=== PATIENT | female | born 1935 | race Caucasian/White ===

== ENCOUNTER 2019-04-06 05:58 | Emergency (ER) | payer OTHER, MEDICARE ==
[~2019-04-06] VITALS: Ht 160 cm; Wt 59.0 kg
[2019-04-06 06:30] VITALS: BP_SYST 150
[2019-04-06] MEDS ORDERED: MORPHINE 2 MG/ML INJ. SYRINGE IVP ONE (07:15)
[2019-04-06 07:29] LABS: BASOPHILS % (AUTO) 0.6 % (0.0-2.0); EOSINOPHILS % (AUTO) 0.4 % (0.0-4.0); HEMATOCRIT 39.3 % (36-48); HEMOGLOBIN 13.3 g/dL (12.0-16.0); LYMPHOCYTES # (AUTO) 1.4 K/uL (1.0-5.5); LYMPHOCYTES % (AUTO) 19.7 % (20.5-51.5); MEAN CORPUSCULAR HEMOGLOBIN 32 pg (27-31); MEAN CORPUSCULAR HGB CONC 34 % (32-36); MEAN CORPUSCULAR VOLUME 95 fL (79.0-98.0); MONOCYTES # (AUTO) 0.5 K/uL (0.0-1.0); MONOCYTES % (AUTO) 6.3 % (1.7-9.3); NEUTROPHILS # (AUTO) 5.3 K/uL (1.8-7.7); PLATELET COUNT (AUTO) 255 K/uL (130-430); RED BLOOD CELL COUNT(AUTO) 4.12 MIL/uL (4.2-6.2); RED CELL DISTRIBUTION WIDTH 13.9 % (9.0-15.0); WHITE BLOOD COUNT (AUTO) 7.3 K/uL (4.8-10.8)
[2019-04-06 07:47] LABS: ANION GAP 6 (5-15); CALCIUM 9.2 mg/dL (8.4-11.0); CHLORIDE 104 mmol/L (98-107); CREATININE 0.79 mg/dL (0.55-1.30); GLUCOSE 107 mg/dL (70-99); INR 0.9 (0.8-1.2); POTASSIUM 3.9 mmol/L (3.5-5.1); PROTHROMBIN TIME 9.4 SECS (9.5-12.5); SODIUM SERUM 141 mmol/L (136-145); UREA NITROGEN, BLOOD 16 mg/dL (8-21)
[2019-04-06 07:53] LABS: ALANINE AMINOTRANSFERASE 15 U/L (12-78); ALBUMIN 3.6 g/dL (3.4-4.8); ASPARTATE AMINOTRANSFERASE 14 U/L (10-37); LIPASE 44 U/L (73-393); TOTAL BILIRUBIN 0.5 mg/dL (0.0-1.0)
[2019-04-06 08:38] LABS: BILIRUBIN,URINE NEGATIVE (NEGATIVE); BLOOD, URINE NEGATIVE (NEGATIVE); CLARITY/URINE CLEAR (CLEAR); COLOR,URINE YELLOW (YELLOW); GLUCOSE,URINE NEGATIVE (NEGATIVE); KETONES,URINE NEGATIVE (NEGATIVE); LEUKOCYTE ESTERASE ,URINE NEGATIVE (NEGATIVE); NITRITE, URINE NEGATIVE (NEGATIVE); PROTEIN URINE NEGATIVE (NEGATIVE); UROBILINOGEN,URINE 0.2 (0.2-1.0)
[2019-04-06] MEDS ORDERED: MAGNESIUM SULFATE 50 ML IV ONE (08:45)
[2019-04-06 10:50] VITALS: BP_SYST 138
== END 2019-04-06 10:50 | disposition home or self-care (01) ==
LOC: SED 05:58
DX: K59.00 Constipation, unspecified (principal); Z88.6 Allergy status to analgesic agent; Z88.8 Allergy status to other drugs, medicaments and biological substances
CPT/HCPCS: 36415; 74176; 76700; 80053; 81003; 83605; 83690; 84484; 85025; 85610; 85730; 93005; 96365; 96375; 99284; J2270; J3475

== ENCOUNTER 2019-04-09 07:08 | Inpatient (IN) | payer OTHER, MEDICARE ==
[~2019-04-09] VITALS: Ht 160 cm; Wt 56.7 kg
[2019-04-09 07:19] VITALS: BP_SYST 154
--- NOTE | 2019-04-09 07:19 | NUR ---
Patient to ER bed 6 to gown for evaluation. Side rails up. Report given to Raimundo RIOS.
--- NOTE | 2019-04-09 07:25 | NUR ---
Patient comes to ER with complaint of ABD pain and diarrhea. Patient is awake, AOx4, ambulatory, verbal and able to give history. Patient states that she has had constipation for about a week, came to ER on Sunday04/06/19 and now has diarrhea x 1 day. Complaint of general malaise with some dizziness.
--- NOTE | 2019-04-09 07:30 | NUR ---
DR Garcia at bedside for ER evaluation
--- NOTE | 2019-04-09 07:35 | NUR ---
# 20 gauge angiocath placed to LT AC. Use of asceptic technique. Opsite placed over site. Blood return noted. Blood for lab drawn from site. Flushed with 10 cc of normal saline. No evidence of infiltration noted. Patient tolerated well.
[2019-04-09 08:00] LABS: BASOPHILS % (AUTO) 0.3 % (0.0-2.0); EOSINOPHILS # (AUTO) 0.1 K/uL (0.0-0.4); EOSINOPHILS % (AUTO) 0.8 % (0.0-4.0); HEMATOCRIT 39.1 % (36-48); HEMOGLOBIN 12.9 g/dL (12.0-16.0); LYMPHOCYTES # (AUTO) 1.7 K/uL (1.0-5.5); LYMPHOCYTES % (AUTO) 23.7 % (20.5-51.5); MEAN CORPUSCULAR HEMOGLOBIN 32 pg (27-31); MEAN CORPUSCULAR HGB CONC 33 % (32-36); MEAN CORPUSCULAR VOLUME 97 fL (79.0-98.0); MONOCYTES # (AUTO) 0.4 K/uL (0.0-1.0); MONOCYTES % (AUTO) 6.2 % (1.7-9.3); NEUTROPHILS # (AUTO) 4.8 K/uL (1.8-7.7); PLATELET COUNT (AUTO) 303 K/uL (130-430); RED BLOOD CELL COUNT(AUTO) 4.04 MIL/uL (4.2-6.2); RED CELL DISTRIBUTION WIDTH 13.7 % (9.0-15.0)
--- NOTE | 2019-04-09 08:05 | NUR ---
turfgrass technician at bedside for transport to radiology for imaging
[2019-04-09] MEDS ORDERED: MORPHINE 2 MG/ML INJ. SYRINGE IVP ONE (08:15)
[2019-04-09 08:18] LABS: ANION GAP 5 (5-15); CALCIUM 9.1 mg/dL (8.4-11.0); CHLORIDE 103 mmol/L (98-107); CREATININE 0.74 mg/dL (0.55-1.30); GLUCOSE 115 mg/dL (70-99); POTASSIUM 3.9 mmol/L (3.5-5.1); SODIUM SERUM 138 mmol/L (136-145); UREA NITROGEN, BLOOD 9 mg/dL (8-21)
[2019-04-09 08:22] LABS: ALANINE AMINOTRANSFERASE 18 U/L (12-78); ALBUMIN 3.6 g/dL (3.4-4.8); ASPARTATE AMINOTRANSFERASE 17 U/L (10-37); LIPASE 43 U/L (73-393); PROTHROMBIN TIME 9.7 SECS (9.5-12.5); TOTAL BILIRUBIN 0.4 mg/dL (0.0-1.0)
[2019-04-09 08:45] LABS: BILIRUBIN,URINE NEGATIVE (NEGATIVE); CLARITY/URINE CLEAR (CLEAR); COLOR,URINE YELLOW (YELLOW); GLUCOSE,URINE NEGATIVE (NEGATIVE); KETONES,URINE NEGATIVE (NEGATIVE); LEUKOCYTE ESTERASE ,URINE NEGATIVE (NEGATIVE); NITRITE, URINE NEGATIVE (NEGATIVE); PH,URINE 7.5 (5.0-8.0); PROTEIN URINE NEGATIVE (NEGATIVE); UROBILINOGEN,URINE 0.2 (0.2-1.0)
[2019-04-09 08:46] LABS: BLOOD, URINE TRACE (NEGATIVE)
[2019-04-09] MEDS ORDERED: AMLO5TAB4 PO (08:52)
[2019-04-09] MEDS ORDERED: LATA5DRO OP (08:52)
--- NOTE | 2019-04-09 08:52 | NUR ---
Medication reconciliation completed with information provided by pt. Any prior medication reconciliation on file was reviewed and corrected.
[2019-04-09 08:59] LABS: BACTERIA,URINE FEW /HPF (None Seen); WBC,URINE 0-3 /HPF (0-3)
--- NOTE | 2019-04-09 09:40 | NUR ---
Report from Michael RIOS
--- NOTE | 2019-04-09 09:45 | NUR ---
Patient will be admitted to care of Dr. Adair. Admitted to medsurge unit. Will go to room 133A. Belongings list completed. Summary report printed. Report will be given at bedside Summer RN.
--- NOTE | 2019-04-09 09:58 | NUR ---
Admission patient brought to room 133A via gurney, patient ambulated to bed from [facility], steady gait noted, respirations even and unlabored on room air, no acute distress noted, patient reports pain is controlled at this time, patients friend Mike at bedside, educated patient on use of call light and asked to call for assistance, patient verbalized understanding, call light in reach, educated patient on use of bed alarm for patient safety, patient refusing bed alarm, bed in low and locked position.
[2019-04-09 10:01] VITALS: BP_SYST 141
[2019-04-09] MEDS: KCL 20 mEq in D5/0.45NS 1000mL 1,000 ML IV SCH ×2 (11:22→23:20)
--- NOTE | 2019-04-09 12:03 | NUR ---
RN Rounds patient resting in bed, respirations even and unlabored on room air, no acute distress noted, IV fluid infusing well, no redness or swelling noted at IV site.
[2019-04-09] MEDS: metroNIDAZOLE 500 mg/NS 100 ML IV SCH ×2 (13:42→21:35)
--- NOTE | 2019-04-09 13:48 | NUR ---
Physician Rounds Dr. Campbell at bedside examining patient.
[2019-04-09 13:50] VITALS: BP_SYST 130
--- NOTE | 2019-04-09 13:55 | NUR ---
SS Notes: PUBLISHING DIRECTOR met with pt at bedside for assessment. Demographic information verified. Pt states prior to being admitted, she was experiencing abdominal pain for 5 days and intensified since yesterday prompting medical care. Pt states she thought it was due to constipation and took some over the counter regimen. Pt lives alone and is independent with her ADL's (cooking, driving, ambulating). Pt states she lives in a one gato home with no steps to get to the front door. Pt does not have any DME's. Pt states her daughter Dorota is her support system but has two other children. Pt does not have any advanced directive or POLST. Pt denies history of mental health but states she feels sad and denies suicidal ideation/homicidal ideation. Pt states she has been independent and being confined in the hospital with limited ambulation due to pain and not being able to do her normal routine makes her sad, pt was tearful during the conversation. PUBLISHING DIRECTOR encouraged pt to verbalize feelings of sadness, and encouraged pt to call friends, family or SS if she needs to talk to someone for support. Pt states she fears being alone and isolated, stating "something might happen while being alone". Pt states she is interested in a program that [facility] offers which calls seniors to talk and check up on them. PUBLISHING DIRECTOR provided pt with [facility]'s phone numbers and encouraged pt to make calls and asks about programs offered. Pt was also provided with Advanced Directive and POLST and educated on both forms. PUBLISHING DIRECTOR provided pt with senior service, and half-way booklet resource. PUBLISHING DIRECTOR encouraged pt to call if questions arise. SS will remain available when needed.
[2019-04-09] MEDS ORDERED: ONDANSETRON HCL 4 MG/2 ML VIAL IVP PRN (14:00)
[2019-04-09] MEDS ORDERED: SIMETHICONE 80 MG TAB.CHEW PO ONE (14:15)
--- NOTE | 2019-04-09 15:50 | NUR ---
RN Rounds patient resting in bed, respirations even and unlabored on room air, no acute distress noted, patient reports pain is controlled.
--- NOTE | 2019-04-09 18:10 | NUR ---
Ambulated to bathroom assisted patient to ambulate to bathroom, steady gait noted, non slip footwear in place, minimum assistance required, voided x1, patient ambulated back to bed.
[2019-04-09 18:42] VITALS: BP_SYST 134
--- NOTE | 2019-04-09 19:26 | NUR ---
Closing Note bedside SBAR report given to receiving RN, patient resting in bed, no acute distress noted, respirations even and unlabored on room air, patient reports pain is controlled, educated patient on use of call light and asked to call for assistance, patient verbalized understanding, call light in reach, educated patient on use of bed alarm for patient safety, patient refusing bed alarm, bed in low and locked position, care endorsed to Gisselle RN.
[2019-04-09 20:45] VITALS: BP_SYST 121
[2019-04-09] MEDS: Latanoprostene Bunod (Vyzulta) OP SCH (21:00)
[2019-04-09] MEDS: ENOXAPARIN SODIUM 40 MG/0.4 ML SYRINGE SUBCUT SCH (21:31)
[2019-04-09] MEDS: SIMETHICONE 80 MG TAB.CHEW PO SCH (21:35)
--- NOTE | 2019-04-09 22:00 | NUR ---
PT RECEIVED AWAKE ALERT AND ORIENTED , PT HAVE NO CHEST PAIN . NO SOB . PT ON IVD51/2 NS WITH 20MEQ KCL .PT WILL BE MONITORED THROUGH THE NIGHT
--- NOTE | 2019-04-10 | NUR ---
PT SLEEPING . IV INFUSING WELL.
[2019-04-10 01:54] VITALS: BP_SYST 147
[2019-04-10] MEDS: KCL 20 mEq in D5/0.45NS 1000mL 1,000 ML IV SCH ×2 (03:16→03:35)
--- NOTE | 2019-04-10 04:00 | NUR ---
PT AWAKE .NO C/O PAIN .
[2019-04-10] MEDS: metroNIDAZOLE 500 mg/NS 100 ML IV SCH ×3 (05:58→21:46)
--- NOTE | 2019-04-10 06:00 | NUR ---
PT STABLE . NO COMPLAIN .
[2019-04-10 06:12] LABS: ANION GAP 3 (5-15); CALCIUM 8.5 mg/dL (8.4-11.0); CHLORIDE 104 mmol/L (98-107); CREATININE 0.78 mg/dL (0.55-1.30); GLUCOSE 117 mg/dL (70-99); POTASSIUM 3.7 mmol/L (3.5-5.1); SODIUM SERUM 137 mmol/L (136-145); UREA NITROGEN, BLOOD 9 mg/dL (8-21)
[2019-04-10 06:41] LABS: BASOPHILS % (AUTO) 0.5 % (0.0-2.0); EOSINOPHILS # (AUTO) 0.1 K/uL (0.0-0.4); EOSINOPHILS % (AUTO) 1.6 % (0.0-4.0); HEMATOCRIT 34.1 % (36-48); HEMOGLOBIN 11.5 g/dL (12.0-16.0); LYMPHOCYTES # (AUTO) 2.2 K/uL (1.0-5.5); LYMPHOCYTES % (AUTO) 40.2 % (20.5-51.5); MEAN CORPUSCULAR HEMOGLOBIN 32 pg (27-31); MEAN CORPUSCULAR HGB CONC 34 % (32-36); MEAN CORPUSCULAR VOLUME 96 fL (79.0-98.0); MONOCYTES # (AUTO) 0.4 K/uL (0.0-1.0); MONOCYTES % (AUTO) 7.7 % (1.7-9.3); NEUTROPHILS # (AUTO) 2.8 K/uL (1.8-7.7); PLATELET COUNT (AUTO) 253 K/uL (130-430); RED BLOOD CELL COUNT(AUTO) 3.54 MIL/uL (4.2-6.2); RED CELL DISTRIBUTION WIDTH 13.9 % (9.0-15.0); WHITE BLOOD COUNT (AUTO) 5.5 K/uL (4.8-10.8)
--- NOTE | 2019-04-10 08:00 | NUR ---
ASSUMPTION OF CARE: RECEIVED PT A/A/OX4, DX: DECREASED ELIMINATION, R/T BLADDER INFECTION/ ABD PAIN, VSS, AFEBRILE, NO S/S OF DISTRESS, IV SITE INTACT, PATENT, NO REDNESS OR SWELLING, ORIENTED TO UNIT, CALL LIGHT PLACED WITHIN REACH, WILL CONT' TO MONITOR AND ASSESS.
--- NOTE | 2019-04-10 09:00 | NUR ---
PUBLICITY DIRECTOR: MORNING MEDS GIVEN, PER ORDERED BY Calvin, TOLERATED WELL, WILL CONT' TO MONITOR AND ASSESS.
[2019-04-10] MEDS: SIMETHICONE 80 MG TAB.CHEW PO SCH ×2 (09:26→20:34)
[2019-04-10] MEDS: amLODIPine BESYLATE 5 MG TABLET PO SCH (09:27)
[2019-04-10 09:29] VITALS: BP_SYST 141
--- NOTE | 2019-04-10 12:00 | NUR ---
IV INSERTION: PT C/O IV SITE APPEARED SWOLLEN AFTER SLEEPING ON TOP OF THE SITE, NEW IV INSERTED TO LEFT FA, 20G X 1 ATTEMPT, TOLERATED WELL, WILL CONT' TO MONITOR AND ASSESS.
[2019-04-10 12:26] VITALS: BP_SYST 124
--- NOTE | 2019-04-10 15:30 | NUR ---
VISIT: AT BEDSIDE FOR ASSESSMENT OF PT, DISCUSSED DIAGNOSIS AND POC, PT VERBALIZES UNDERSTANDING, NEW ORDERS GIVEN, WILL CONT' TO MONITOR AND ASSESS.
[2019-04-10 17:09] VITALS: BP_SYST 135
--- NOTE | 2019-04-10 17:37 | NUR ---
P.T. NOTES P.T. BARB COMPLETED; PATIENT MAY AMBULATE AD KARLIE W/ NURSE. Addendum: 04/10/19 at 1741 by Junie Heard PT Amended: Links added.
--- NOTE | 2019-04-10 19:30 | NUR ---
Opening notes Received report. Patient resting comfortably in bed. No signs of distress noted. Breathing even and unlabored. Denies any pain. IV patent and intact, infusing fluids. Updated patient on plan of care. Patient verbalized understanding. No needs at this time. Call light with the patient. Safety precautions in place.
[2019-04-10 20:00] VITALS: BP_SYST 126
[2019-04-10] MEDS: Latanoprostene Bunod (Vyzulta) OP SCH (20:34)
[2019-04-10] MEDS: ENOXAPARIN SODIUM 40 MG/0.4 ML SYRINGE SUBCUT SCH (20:35)
--- NOTE | 2019-04-10 20:45 | NUR ---
Medications given. Educated the action and side effects of medications. Patient verbalized understanding and tolerated well. No signs of allergic reaction noted. Assisted patient to bathroom with a walker. Steady gait noted. Patient stated she is feeling much better. Patient assisted back into bed. No other needs. Call light with the patient. Safety precautions in place.
--- NOTE | 2019-04-10 22:00 | NUR ---
Patient sitting in bedside chair Patient states she is uncomfortable and wants to sit in chair. Patient assisted to chair. Informed patient to call when she is ready to get back into bed. Patient verbalized understanding and tolerated well. Call light given to patient. Patient watching TV. Addendum: 04/10/19 at 2251 by Maribeth Goldstein RN Patient called to get back into bed. Patient assisted into bed. No signs of distress noted. Breathing even and unlabored. Call light with the patient. Safety precautions in place.
--- NOTE | 2019-04-11 00:30 | NUR ---
SLEEPING NO SIGNS OF DISTRESS NOTED. BREATHING EVEN AND UNLABORED. IVF INFUSING WELL. CALL LIGHT WITH THE PATIENT. SAFETY PRECAUTIONS IN PLACE.
[2019-04-11 01:31] VITALS: BP_SYST 131
[2019-04-11] MEDS: KCL 20 mEq in D5/0.45NS 1000mL 1,000 ML IV SCH ×2 (02:56→17:38)
--- NOTE | 2019-04-11 03:00 | NUR ---
SLEEPING PATIENT SLEEPING. NO SIGNS OF DISTRESS NOTED. BREATHING EVEN AND UNLABORED. NEW BAG OF IVF HUNG AT THIS TIME. CALL LIGHT WITH THE PATIENT. SAFETY PRECAUTIONS IN PLACE.
[2019-04-11] MEDS: metroNIDAZOLE 500 mg/NS 100 ML IV SCH ×3 (05:44→21:39)
--- NOTE | 2019-04-11 06:50 | NUR ---
CLOSING NOTES PATIENT RESTING COMFORTABLY IN BED. NO SIGNS OF DISTRESS NOTED. BREATHING EVEN AND UNLABORED. IV PATENT AND INTACT, INFUSING FLUIDS. PATIENT COMPLAINS OF SOME PAIN TO STOMACH BUT DOES NOT WANT MEDICATION. ALL NEEDS MET THROUGHOUT THE SHIFT. CALL LIGHT WITH THE PATIENT. SAFETY PRECAUTIONS IN PLACE. WILL ENDORSE CARE TO DAY SHIFT RN.
--- NOTE | 2019-04-11 07:30 | NUR ---
INITIAL NOTES PT IS AWAKE, ALERT AND ORIENTED X4, DENIES PAIN, NOS SOB, AFEBRILE, VSS, BOWEL SOUNDS PRESENT, PT STATED SHE HAD LITTLE BIT OF PAIN ON RIGHT UPPER QUADRANT OF THE ABDOMEN, WILL CONTINUE TO MONITOR, REVIEWED PLAN OF CARE, CALL LIGHT WITHIN REACH
[2019-04-11 07:33] LABS: BASOPHILS % (AUTO) 0.5 % (0.0-2.0); EOSINOPHILS # (AUTO) 0.1 K/uL (0.0-0.4); EOSINOPHILS % (AUTO) 1.4 % (0.0-4.0); HEMATOCRIT 36.1 % (36-48); HEMOGLOBIN 12.2 g/dL (12.0-16.0); LYMPHOCYTES # (AUTO) 2.4 K/uL (1.0-5.5); LYMPHOCYTES % (AUTO) 43.2 % (20.5-51.5); MEAN CORPUSCULAR HEMOGLOBIN 32 pg (27-31); MEAN CORPUSCULAR HGB CONC 34 % (32-36); MEAN CORPUSCULAR VOLUME 96 fL (79.0-98.0); MONOCYTES # (AUTO) 0.4 K/uL (0.0-1.0); MONOCYTES % (AUTO) 6.5 % (1.7-9.3); NEUTROPHILS # (AUTO) 2.7 K/uL (1.8-7.7); NEUTROPHILS % (AUTO) 48.4 % (40.0-70.0); PLATELET COUNT (AUTO) 305 K/uL (130-430); RED BLOOD CELL COUNT(AUTO) 3.76 MIL/uL (4.2-6.2); RED CELL DISTRIBUTION WIDTH 13.8 % (9.0-15.0); WHITE BLOOD COUNT (AUTO) 5.6 K/uL (4.8-10.8)
[2019-04-11 07:47] LABS: ANION GAP 5 (5-15); CHLORIDE 105 mmol/L (98-107); CREATININE 0.73 mg/dL (0.55-1.30); GLUCOSE 109 mg/dL (70-99); POTASSIUM 3.9 mmol/L (3.5-5.1); SODIUM SERUM 138 mmol/L (136-145); UREA NITROGEN, BLOOD 8 mg/dL (8-21)
[2019-04-11 08:00] VITALS: BP_SYST 149; BP_SYST 172
--- NOTE | 2019-04-11 08:45 | NUR ---
ASSISTED PT TO SIT ON THE CHAIR, PT DENIES ANY ABDOMINAL DISCOMFORT AT THIS TIME
[2019-04-11] MEDS: amLODIPine BESYLATE 5 MG TABLET PO SCH (09:09)
[2019-04-11] MEDS: SIMETHICONE 80 MG TAB.CHEW PO SCH ×3 (09:11→21:37)
--- NOTE | 2019-04-11 10:00 | NUR ---
NSG RND PT IS SITTING ON THE CHAIR AT BEDSIDE, RESTING COMFORTABLY. CALL LIGHT WITHIN REACH
[2019-04-11 11:24] VITALS: BP_SYST 140
--- NOTE | 2019-04-11 11:49 | NUR ---
PAGED DR HOLLIS FOR DIET ORDER, AWAITING FOR CALL BACK
--- NOTE | 2019-04-11 11:58 | NUR ---
NEW ORDER S/W DR HOLLIS AND RECEIVED NEW ORDERS
--- NOTE | 2019-04-11 12:05 | NUR ---
PT IS STABLE, NO SOB , AFEBRILE, CALL LIGHT WITHIN REACH
[2019-04-11] MEDS ORDERED: DOCUSATE SODIUM 100 MG CAPSULE PO ONE (12:15)
--- NOTE | 2019-04-11 13:30 | NUR ---
pt just came back from restroom and sat on the chair at bedside, no bm, urinated only
--- NOTE | 2019-04-11 14:56 | NUR ---
PT IS AMBULATING ON THE HALLWAY WITH PT'S DTR. PT DENIES ANY DIZZINESS
[2019-04-11 15:27] VITALS: BP_SYST 127
--- NOTE | 2019-04-11 15:50 | NUR ---
DC'D IV ON LEFT LOWER ARM, CANNULA INTACT, APPLIED DRESSING AND WILL CONTINUE TO MONITOR
--- NOTE | 2019-04-11 17:30 | NUR ---
MD ROUNDS UPDATED DR HOLLIS OF PT'S STATUS. NEW ORDERS RECEIVED
--- NOTE | 2019-04-11 17:48 | NUR ---
Dietitian Recommendations * Consider advance advance diet to soft (low fiber/bland) diet if/when medically appropriate. * Encourage PO intake. * rn internal medicine provided Mediterranean, IBS, and low-sodium MNT LP, RD Please refer to Nutrition Assessment for details. Signed: 04/11/19 at 1748 by Evelyn RODRÍGUEZ <Co-Signature Required> Co-Signed: 04/11/19 at [address] Addendum: 04/11/19 at 1748 by Evelyn RODRÍGUEZ Amended: Links added.
--- NOTE | 2019-04-11 18:50 | NUR ---
CLOSING NOTES PT IS SITTING ONT HE CHAIR, STABLE, NO SOB, CALL LIGHT WITHIN REACH
--- NOTE | 2019-04-11 19:30 | NUR ---
Opening notes Received report. Patient is resting in bed. No signs of distress noted. Breathing even and unlabored. Patient states she has a little bit of pain, but tolerable. IV patent and intact, infusing fluids. Updated patient on plan of care. Call light with the patient. Safety precautions in place.
[2019-04-11 20:00] VITALS: BP_SYST 134
--- NOTE | 2019-04-11 21:00 | NUR ---
Patient to radiology Patient in stable condition accompanied by electron beam photo mask technician using wheelchair. No signs of distress noted. Addendum: 04/11/19 at 2123 by Maribeth Goldstein RN Patient back on unit and in bed. No signs of distress noted. Breathing even and unlabored. IVF resume. Call light with the patient. Safety precautions in place.
[2019-04-11] MEDS: Latanoprostene Bunod (Vyzulta) OP SCH (21:37)
[2019-04-11] MEDS: DOCUSATE SODIUM 100 MG CAPSULE PO SCH (21:37)
[2019-04-11] MEDS: ENOXAPARIN SODIUM 40 MG/0.4 ML SYRINGE SUBCUT SCH (21:38)
--- NOTE | 2019-04-11 21:40 | NUR ---
Medications given. educated the action and side effects of medications. Patient verbalized understanding and tolerated well. No signs of allergic reaction. Patient ambulated to bathroom using walker, minimal assist. Patient back in bed. No signs of distress noted. Breathing even and unlabored. Call light with the patient. Safety precautions in place.
--- NOTE | 2019-04-12 00:30 | NUR ---
AMBULATED TO BATHROOM USING WALKER WITH MINIMAL ASSIST. NO BM YET. PATIENT BACK IN BED. NO SIGNS OF DISTRESS NOTED. BREATHING EVEN AND UNLABORED. IVF INFUSING WELL. CALL LIGHT WITH THE PATIENT. SAFETY PRECAUTIONS IN PLACE.
--- NOTE | 2019-04-12 02:41 | NUR ---
SLEEPING NO SIGNS OF DISTRESS NOTED. BREATHING EVEN AND UNLABORED. IVF INFUSING WELL. CALL LIGHT WITH THE PATIENT. SAFETY PRECAUTIONS IN PLACE.
[2019-04-12 02:43] VITALS: BP_SYST 141
--- NOTE | 2019-04-12 04:50 | NUR ---
Sleeping No signs of distress noted. Breathing even and unlabored. IVF infusing well. Call light with the patient. Safety precautions in place.
[2019-04-12] MEDS: KCL 20 mEq in D5/0.45NS 1000mL 1,000 ML IV SCH (05:41)
[2019-04-12] MEDS: metroNIDAZOLE 500 mg/NS 100 ML IV SCH (05:41)
--- NOTE | 2019-04-12 06:41 | NUR ---
Closing notes Patient resting comfortably in bed. No signs of distress noted. Breathing even and unlabored. IV patent and intact, infusing fluids. All needs met throughout the shift. Call light with the patient. Safety precautions in place. Will endorse care to day shift RN
--- NOTE | 2019-04-12 07:40 | NUR ---
Initial notes- Sitting in the chair, denies any chest pain or discomfort. ambulate with supervision. IVF infusing well. update plan of care. will monitor.
[2019-04-12 08:00] VITALS: BP_SYST 137
[2019-04-12] MEDS: SIMETHICONE 80 MG TAB.CHEW PO SCH (08:16)
[2019-04-12] MEDS: DOCUSATE SODIUM 100 MG CAPSULE PO SCH (08:17)
[2019-04-12] MEDS: amLODIPine BESYLATE 5 MG TABLET PO SCH (08:18)
--- NOTE | 2019-04-12 10:00 | NUR ---
Patient is walking in the hallway with minimal supervision. pt tolerated well
[2019-04-12 11:23] VITALS: BP_SYST 115
--- NOTE | 2019-04-12 12:37 | NUR ---
Pt feels depressed and wants to go home now. Paged Dr. Man covering for Dr. Campbell. MD will come and will see patient.
--- NOTE | 2019-04-12 13:06 | NUR ---
Patient had soft bowel movement.
[2019-04-12 13:56] VITALS: BP_SYST 115
[2019-04-12] MEDS ORDERED: METR500T PO (14:02)
--- NOTE | 2019-04-12 14:43 | NUR ---
D/C Patient Patient given medication reconciliation form and D/C instructions. Exit Care provided. Patient verbalized understanding. MD discussed with patient the results and treatment provided. Ambulatory with steady gait for discharge to home. Patient in stable condition, ID band removed. IV catheter removed, Rx of given. Patient educated on pain management. All belongings sent with patient.
--- NOTE | 2019-04-17 16:23 | NUR ---
DISCHARGE FOLLOW UP PHONE CALL CM/ JOSE TECH PHONED PATIENT, . UNABLE TO REACH PATIENT. 1ST ATTEMPT DONE, LEFT VOICEMAIL 04/17/19.
== END 2019-04-12 14:45 | disposition home or self-care (01) | DRG 392 ==
LOC: SED 07:08 → SMU 08:56
PROVIDERS: ADMIT Family Medicine; ATTEND Family Medicine
DX: K52.9 Noninfective gastroenteritis and colitis, unspecified (principal); M81.0 Age-related osteoporosis without current pathological fracture; I10 Essential (primary) hypertension; D64.9 Anemia, unspecified; M19.90 Unspecified osteoarthritis, unspecified site; M51.36 Other intervertebral disc degeneration, lumbar region; Z88.8 Allergy status to other drugs, medicaments and biological substances; Z79.899 Other long term (current) drug therapy
CPT/HCPCS: 36415; 71045; 72110; 73502; 76700-TC; 80048; 80053; 81000-TC; 81003; 83605; 83690-TC; 83735-TC; 84484; 85025; 85610-TC; 85730-TC; 87040-TC; 87086; 93005; 96365; 96374; 96375; 99285; J1650; J2270; J3475; J3490

== ENCOUNTER 2021-11-30 09:51 | Inpatient (IN) | payer OTHER, MEDICARE ==
[~2021-11-30] VITALS: Ht 160 cm; Wt 53.5 kg
[2021-11-30 09:51] VITALS: BP_SYST 134
[~2021-11-30 09:51] MED LIST: AMLO5TAB4 PO; CEPH-548 PO; LATA5DRO OP; METR500T PO
[2021-11-30 10:35] LABS: BASOPHILS % (AUTO) 0.4 % (0.0-2.0); EOSINOPHILS % (AUTO) 0.3 % (0.0-4.0); HEMATOCRIT 32.5 % (36-48); HEMOGLOBIN 11.2 g/dL (12.0-16.0); LYMPHOCYTES # (AUTO) 1.5 K/uL (1.0-5.5); LYMPHOCYTES % (AUTO) 24.3 % (20.5-51.5); MEAN CORPUSCULAR HEMOGLOBIN 32 pg (27-31); MEAN CORPUSCULAR HGB CONC 35 % (32-36); MEAN CORPUSCULAR VOLUME 92 fL (79.0-98.0); MONOCYTES # (AUTO) 0.6 K/uL (0.0-1.0); MONOCYTES % (AUTO) 10.4 % (1.7-9.3); NEUTROPHILS # (AUTO) 3.9 K/uL (1.8-7.7); NEUTROPHILS % (AUTO) 64.6 % (40.0-70.0); PLATELET COUNT (AUTO) 250 K/uL (130-430); RED BLOOD CELL COUNT(AUTO) 3.53 MIL/uL (4.2-6.2); RED CELL DISTRIBUTION WIDTH 13.4 % (9.0-15.0)
[2021-11-30 10:54] LABS: ANION GAP 7 (5-15); CHLORIDE 100 mmol/L (98-107); CREATININE 0.85 mg/dL (0.55-1.30); GLUCOSE 126 mg/dL (70-99); POTASSIUM 3.5 mmol/L (3.5-5.1); SODIUM SERUM 137 mmol/L (136-145); UREA NITROGEN, BLOOD 16 mg/dL (8-21)
[2021-11-30 11:12] LABS: ALANINE AMINOTRANSFERASE 26 U/L (12-78); ALBUMIN 2.4 g/dL (3.4-4.8); AMYLASE 20 U/L (0-100); ASPARTATE AMINOTRANSFERASE 19 U/L (10-37); C-REACTIVE PROTEIN QUANT 12.5 mg/dL (0-0.5); LIPASE 41 U/L (73-393); TOTAL BILIRUBIN 0.2 mg/dL (0.0-1.0)
[2021-11-30] MEDS ORDERED: cefTRIAXone 1 GM in LIDOCAINE 1%, 20 ML MDV 2.1 ML IM ONE (12:00)
[2021-11-30 12:03] LABS: BILIRUBIN,URINE NEGATIVE (NEGATIVE); BLOOD, URINE TRACE (NEGATIVE); CLARITY/URINE CLEAR (CLEAR); COLOR,URINE YELLOW (YELLOW); GLUCOSE,URINE NEGATIVE (NEGATIVE); KETONES,URINE NEGATIVE (NEGATIVE); LEUKOCYTE ESTERASE ,URINE 1+ (NEGATIVE); NITRITE, URINE NEGATIVE (NEGATIVE); PH,URINE 6.5 (5.0-8.0); PROTEIN URINE NEGATIVE (NEGATIVE); UROBILINOGEN,URINE 0.2 (0.2-1.0)
[2021-11-30] MEDS ORDERED: NITR-85 PO ×2 (12:03)
[2021-11-30 12:13] LABS: BACTERIA,URINE FEW /HPF (None Seen)
[2021-11-30 18:18] VITALS: BP_SYST 159
[2021-11-30] MEDS ORDERED: ACETAMINOPHEN 325 MG TABLET PO PRN (18:30)
[2021-11-30] MEDS: KCL 20 mEq in D5/0.45NS 1000mL 1,000 ML IV SCH (18:45)
[2021-11-30] MEDS ORDERED: amLODIPine BESYLATE 10 MG TABLET PO ONE (18:45)
[2021-11-30] MEDS ORDERED: SACCHAROMYCES BOULARDII 250 MG CAPSULE (FLORASTOR) PO SCH (21:00)
[2021-11-30] MEDS ORDERED: LATANOPROSTENE BUNOD OP SCH (21:00)
[2021-11-30] MEDS: CEFEPIME 1 GM in D5W 50 ML IV SCH (21:56)
[2021-11-30] MEDS: LACTOBACILLUS RHAMNOSUS GG 1 CAP CAPSULE PO SCH (21:57)
[2021-11-30] MEDS: ENOXAPARIN SODIUM 40 MG/0.4 ML SYRINGE SUBCUT SCH (21:59)
[2021-12-01 01:30] VITALS: BP_SYST 106
[2021-12-01 07:07] LABS: BASOPHILS % (AUTO) 0.5 % (0.0-2.0); EOSINOPHILS % (AUTO) 0.7 % (0.0-4.0); HEMATOCRIT 32.9 % (36-48); HEMOGLOBIN 11.4 g/dL (12.0-16.0); LYMPHOCYTES # (AUTO) 1.9 K/uL (1.0-5.5); LYMPHOCYTES % (AUTO) 29.4 % (20.5-51.5); MEAN CORPUSCULAR HEMOGLOBIN 32 pg (27-31); MEAN CORPUSCULAR HGB CONC 35 % (32-36); MEAN CORPUSCULAR VOLUME 92 fL (79.0-98.0); MONOCYTES # (AUTO) 0.6 K/uL (0.0-1.0); MONOCYTES % (AUTO) 9.7 % (1.7-9.3); NEUTROPHILS # (AUTO) 3.8 K/uL (1.8-7.7); NEUTROPHILS % (AUTO) 59.7 % (40.0-70.0); PLATELET COUNT (AUTO) 276 K/uL (130-430); RED BLOOD CELL COUNT(AUTO) 3.57 MIL/uL (4.2-6.2); RED CELL DISTRIBUTION WIDTH 13.5 % (9.0-15.0); WHITE BLOOD COUNT (AUTO) 6.4 K/uL (4.8-10.8)
[2021-12-01 07:46] LABS: ANION GAP 9 (5-15); CALCIUM 7.9 mg/dL (8.4-11.0); CHLORIDE 102 mmol/L (98-107); CREATININE 0.76 mg/dL (0.55-1.30); GLUCOSE 112 mg/dL (70-99); POTASSIUM 3.4 mmol/L (3.5-5.1); SODIUM SERUM 138 mmol/L (136-145); UREA NITROGEN, BLOOD 13 mg/dL (8-21)
[2021-12-01] MEDS: KCL 20 mEq in D5/0.45NS 1000mL 1,000 ML IV SCH ×2 (07:49→23:51)
[2021-12-01 08:25] VITALS: BP_SYST 123
[2021-12-01] MEDS: amLODIPine BESYLATE 5 MG TABLET PO SCH (09:34)
[2021-12-01] MEDS: LACTOBACILLUS RHAMNOSUS GG 1 CAP CAPSULE PO SCH ×2 (09:34→23:26)
[2021-12-01 12:38] VITALS: BP_SYST 135
[2021-12-01 16:52] VITALS: BP_SYST 115
[2021-12-01] MEDS ORDERED: POTASSIUM CHLORIDE 20 MEQ/PKT PACKET PO ONE (17:45)
[2021-12-01 20:00] VITALS: BP_SYST 139
[2021-12-01] MEDS: CEFEPIME 1 GM in D5W 50 ML IV SCH (23:26)
[2021-12-01] MEDS: ENOXAPARIN SODIUM 40 MG/0.4 ML SYRINGE SUBCUT SCH (23:28)
[2021-12-02] VITALS: BP_SYST 142
[2021-12-02] MEDS: LACTOBACILLUS RHAMNOSUS GG 1 CAP CAPSULE PO SCH (08:59)
[2021-12-02] MEDS: amLODIPine BESYLATE 5 MG TABLET PO SCH (08:59)
[2021-12-02 10:15] VITALS: BP_SYST 127
[2021-12-02] MEDS: KCL 20 mEq in D5/0.45NS 1000mL 1,000 ML IV SCH ×2 (11:16→23:43)
[2021-12-02] MEDS ORDERED: MILK OF MAGNESIA 30 ML UDC PO PRN (12:15)
[2021-12-02 12:35] VITALS: BP_SYST 128
[2021-12-02 16:30] VITALS: BP_SYST 126
[2021-12-02] MEDS ORDERED: POTASSIUM CHLORIDE 20 MEQ/PKT PACKET PO ONE (16:45)
[2021-12-02 20:00] VITALS: BP_SYST 133
[2021-12-02] MEDS: ENOXAPARIN SODIUM 40 MG/0.4 ML SYRINGE SUBCUT SCH (21:00)
[2021-12-02] MEDS: CEFEPIME 1 GM in D5W 50 ML IV SCH (23:40)
[2021-12-03] MEDS: LACTOBACILLUS RHAMNOSUS GG 1 CAP CAPSULE PO SCH ×2 (00:04→09:42)
[2021-12-03 01:12] VITALS: BP_SYST 152
[2021-12-03 09:11] VITALS: BP_SYST 138
[2021-12-03] MEDS: amLODIPine BESYLATE 5 MG TABLET PO SCH (09:42)
[2021-12-03] MEDS ORDERED: SULFAMETHOXAZOLE/TRIMETHOPR DS 1 TABLET PO ONE (14:00)
[2021-12-03 14:50] VITALS: BP_SYST 135
[2021-12-03] MEDS ORDERED: SULF1TAB48 PO (15:06)
[2021-12-03] MEDS ORDERED: LACT1CAP58 PO (15:07)
[2021-12-03 16:29] VITALS: BP_SYST 137
[2021-12-03] MEDS: KCL 20 mEq in D5/0.45NS 1000mL 1,000 ML IV SCH (17:15)
[2021-12-03 17:57] VITALS: BP_SYST 137
[2021-12-03] MEDS ORDERED: SULFAMETHOXAZOLE/TRIMETHOPR DS 1 TABLET PO SCH (21:00)
== END 2021-12-03 20:50 | DRG 689 ==
LOC: SED 09:51 → SMU 13:17
PROVIDERS: ADMIT Internal Medicine; ATTEND Family Medicine
DX: N39.0 Urinary tract infection, site not specified (principal); E43 Unspecified severe protein-calorie malnutrition; I10 Essential (primary) hypertension; D64.9 Anemia, unspecified; M81.0 Age-related osteoporosis without current pathological fracture; R29.6 Repeated falls; M19.90 Unspecified osteoarthritis, unspecified site; Z79.899 Other long term (current) drug therapy; Z88.8 Allergy status to other drugs, medicaments and biological substances; Z88.1 Allergy status to other antibiotic agents
CPT/HCPCS: 36415; 76376; 80048; 80053; 81000; 82150; 83605; 83690; 85025; 86140; 87086; 96372; 99285; J0692; J0696; J1650; J2001; J7060

== ENCOUNTER 2022-03-10 20:10 | Emergency (ER) | payer OTHER, MEDICARE ==
[~2022-03-10] VITALS: Ht 162.6 cm; Wt 56.7 kg
[~2022-03-10 20:10] MED LIST changes: -CEPH-548 PO; +LACT1CAP58 PO; -METR500T PO; +SULF1TAB48 PO
[2022-03-10 20:38] VITALS: BP_SYST 179
--- NOTE | 2022-03-10 20:38 | NUR ---
Patient came in to the emergency room with complains of high BP all day today, SBP 190's. Patient states pressure to bilateral ears, 5/10 PS. Patient reports hard of hearing. Patient denies chest pain, shortness of breath, any other remarkable signs and symptoms. Patient ambulatory with the use of cane, AAO x 4. Will continue to monitor. Patient with Hx of hypertension and skin CA
--- NOTE | 2022-03-10 20:45 | NUR ---
Patient triaged and placed in waiting room. VS checked and patient appears in no acute distress at this time. Accompanied by family, awaiting available bed, and MD notified of need for MSE.
[2022-03-10 21:52] LABS: BASOPHILS % (AUTO) 0.3 % (0.0-2.0); EOSINOPHILS # (AUTO) 0.1 K/uL (0.0-0.4); EOSINOPHILS % (AUTO) 0.8 % (0.0-4.0); HEMATOCRIT 37.9 % (36-48); MEAN CORPUSCULAR VOLUME 92 fL (79.0-98.0); MONOCYTES # (AUTO) 0.5 K/uL (0.0-1.0); MONOCYTES % (AUTO) 8.1 % (1.7-9.3); NEUTROPHILS % (AUTO) 60.8 % (40.0-70.0); PLATELET COUNT (AUTO) 212 K/uL (130-430); RED BLOOD CELL COUNT(AUTO) 4.11 MIL/uL (4.2-6.2); RED CELL DISTRIBUTION WIDTH 13.8 % (9.0-15.0); WHITE BLOOD COUNT (AUTO) 6.6 K/uL (4.8-10.8)
[2022-03-10 21:56] LABS: ANION GAP 10 (5-15); CALCIUM 9.4 mg/dL (8.4-11.0); CHLORIDE 101 mmol/L (98-107); CREATININE 0.96 mg/dL (0.55-1.30); GLUCOSE 106 mg/dL (70-99); UREA NITROGEN, BLOOD 14 mg/dL (8-21)
[2022-03-10 22:01] LABS: ALANINE AMINOTRANSFERASE 21 U/L (12-78); ALBUMIN 3.8 g/dL (3.4-4.8); ASPARTATE AMINOTRANSFERASE 16 U/L (10-37); LIPASE 58 U/L (73-393); TOTAL BILIRUBIN 0.4 mg/dL (0.0-1.0)
--- NOTE | 2022-03-10 22:35 | NUR ---
Patient ambulatory with family to bed 8 for evaluation and treatment
[2022-03-10 23:29] LABS: BILIRUBIN,URINE NEGATIVE (NEGATIVE); BLOOD, URINE NEGATIVE (NEGATIVE); CLARITY/URINE CLEAR (CLEAR); COLOR,URINE YELLOW (YELLOW); GLUCOSE,URINE NEGATIVE (NEGATIVE); KETONES,URINE NEGATIVE (NEGATIVE); LEUKOCYTE ESTERASE ,URINE NEGATIVE (NEGATIVE); NITRITE, URINE NEGATIVE (NEGATIVE); PH,URINE 6.5 (5.0-8.0); PROTEIN URINE NEGATIVE (NEGATIVE); UROBILINOGEN,URINE 0.2 (0.2-1.0)
--- NOTE | 2022-03-10 23:30 | NUR ---
ER MD Dennis notified of patient's bp of 194/125; No new orders given at this time.
--- NOTE | 2022-03-10 23:30 | NUR ---
Patient resting comfortably in bed with side rails raised. Nad noted at this time.
[2022-03-11 00:07] VITALS: BP_SYST 158
--- NOTE | 2022-03-11 00:07 | NUR ---
Patient given written and verbal discharge instructions and verbalizes understanding. ER MD discussed with patient the results and treatment provided. Patient in stable condition. ID arm band removed. Patient educated on pain management and to follow up with PMD. Pain Scale 0/10. Opportunity for questions provided and answered. Patient A/Ox4, VSS, ambulatory, resp even and unlabored. Patient in stable condition accompained by daughter upon discharge
== END 2022-03-11 00:07 | disposition home or self-care (01) ==
LOC: SED 20:10
DX: I10 Essential (primary) hypertension (principal); Z88.1 Allergy status to other antibiotic agents; Z88.5 Allergy status to narcotic agent; Z88.6 Allergy status to analgesic agent; Z88.8 Allergy status to other drugs, medicaments and biological substances; Z79.899 Other long term (current) drug therapy
CPT/HCPCS: 36415; 71045; 80053; 81003; 83690; 84484; 85025; 99284

== ENCOUNTER 2022-03-28 06:46 | Emergency (ER) | payer OTHER, MEDICARE ==
[~2022-03-28] VITALS: Ht 162.6 cm; Wt 56.7 kg
[2022-03-28 06:55] VITALS: BP_SYST 167
--- NOTE | 2022-03-28 06:55 | NUR ---
Patient ambulatory with use of cane, to bed 8 for evaluationa and treatment.
--- NOTE | 2022-03-28 07:05 | NUR ---
ER at bedside examining patient.
--- NOTE | 2022-03-28 07:07 | NUR ---
Received report from BLANCA Mar. Pt in no acute distress, observed lying on gurney. Care to be provided as ordered.
[2022-03-28] MEDS ORDERED: HYDR-4039 PO (07:10)
[2022-03-28] MEDS ORDERED: LOSA50TA3 PO (07:10)
[2022-03-28] MEDS ORDERED: METO-442 PO (07:11)
[2022-03-28] MEDS ORDERED: LEVO25TA7 PO (07:13)
[2022-03-28] MEDS ORDERED: cloNIDine HCL 0.1 MG TABLET PO ONE (07:15)
--- NOTE | 2022-03-28 07:45 | NUR ---
Recieved report from BLANCA Metz. CC HTN. Pt states BP at home 190/110 currently 161/86. Clonidine administered by previous RN. Will continue to monitor BP trend. aaox4 smbulates with steady gait denies SOB, numbness and tingling at this time. Pt notes tingly feeling on right foot last evening.
[2022-03-28 07:50] LABS: BASOPHILS % (AUTO) 0.5 % (0.0-2.0); EOSINOPHILS # (AUTO) 0.1 K/uL (0.0-0.4); EOSINOPHILS % (AUTO) 0.8 % (0.0-4.0); HEMATOCRIT 36.7 % (36-48); HEMOGLOBIN 12.4 g/dL (12.0-16.0); LYMPHOCYTES # (AUTO) 1.3 K/uL (1.0-5.5); LYMPHOCYTES % (AUTO) 15.4 % (20.5-51.5); MEAN CORPUSCULAR HEMOGLOBIN 32 pg (27-31); MEAN CORPUSCULAR HGB CONC 34 % (32-36); MEAN CORPUSCULAR VOLUME 94 fL (79.0-98.0); MONOCYTES # (AUTO) 0.5 K/uL (0.0-1.0); MONOCYTES % (AUTO) 5.6 % (1.7-9.3); NEUTROPHILS # (AUTO) 6.3 K/uL (1.8-7.7); NEUTROPHILS % (AUTO) 77.7 % (40.0-70.0); PLATELET COUNT (AUTO) 216 K/uL (130-430); RED BLOOD CELL COUNT(AUTO) 3.91 MIL/uL (4.2-6.2); RED CELL DISTRIBUTION WIDTH 13.6 % (9.0-15.0); WHITE BLOOD COUNT (AUTO) 8.2 K/uL (4.8-10.8)
[2022-03-28 07:57] LABS: ANION GAP 7 (5-15); CALCIUM 8.8 mg/dL (8.4-11.0); CHLORIDE 105 mmol/L (98-107); CREATININE 1.03 mg/dL (0.55-1.30); GLUCOSE 108 mg/dL (70-99); POTASSIUM 3.8 mmol/L (3.5-5.1); UREA NITROGEN, BLOOD 22 mg/dL (8-21)
[2022-03-28] MEDS ORDERED: FURO-150 PO (08:43)
--- NOTE | 2022-03-28 09:34 | NUR ---
Patient given written and verbal discharge instructions and verbalizes understanding. ER MD discussed with patient the results and treatment provided. Patient in stable condition. ID arm band removed. Rx of Furosemide given. Patient educated on pain management and to follow up with PMD. Opportunity for questions provided and answered. Medication side effect fact sheet provided.
[2022-03-28 09:35] VITALS: BP_SYST 136
== END 2022-03-28 09:35 | disposition home or self-care (01) ==
LOC: SED 06:46
DX: I16.0 Hypertensive urgency (principal); I10 Essential (primary) hypertension; R51.9 Headache, unspecified; Z88.1 Allergy status to other antibiotic agents; Z88.5 Allergy status to narcotic agent; Z88.6 Allergy status to analgesic agent; Z88.8 Allergy status to other drugs, medicaments and biological substances; Z79.899 Other long term (current) drug therapy
CPT/HCPCS: 36415; 70450-TC; 76376; 80048; 83880; 84484; 85025; 99285